=== PATIENT | male | born 1965 | race Caucasian/White ===

== ENCOUNTER 2020-12-24 06:07 | Inpatient (IN) ==
[2020-12-24] MEDS ORDERED: cefOXitin 2,000 MG in Water for inj. (sterile) 10 ML IVP ONE (06:43)
[2020-12-24] MEDS ORDERED: Famotidine 20 MG/2 ML VIAL IVP ONE (07:00)
[2020-12-24] MEDS ORDERED: Ringers Solution, Lactated 1,000 ML IVC ONE (07:00)
[2020-12-24] MEDS ORDERED: Acetaminophen IV 1,000 MG/100 ML BAG IVPB ONE (07:00)
[2020-12-24] MEDS ORDERED: *HR* Midazolam HCl 2 MG/2 ML VIAL ONE (07:09)
[2020-12-24] MEDS ORDERED: *HR* Rocuronium Bromide 50 MG/5 ML VIAL ONE ×2 (07:09→10:26)
[2020-12-24] MEDS ORDERED: *HR* Propofol 200 MG/20 ML VIAL IVP ONE (07:09)
[2020-12-24] MEDS ORDERED: *HR* FentaNYL (PF) 100 MCG/2 ML VIAL ONE ×3 (07:09→11:30)
[2020-12-24] MEDS ORDERED: Lidocaine -MPF 2% 2 ML VIAL ONE (07:09)
[2020-12-24 07:10] LABS: Basophils % 0.3 %; Eosinophils # 0.2 K/mcL (0.0-0.6); Eosinophils % 2.9 %; Hemoglobin 9.9 g/dL (12.9-16.9); Immature Granulocytes % 0.5 % (0-4); Lymphocytes # 0.8 K/mcL (0.6-4.6); Lymphocytes % 12.1 %; Mean Corpuscular HGB Conc 31.9 g/dL (31.6-35.5); Mean Corpuscular Hemoglobin 30.1 pg (28.0-33.3); Mean Corpuscular Volume 94.2 fL (83.0-100.0); Mean Platelet Volume 8.7 fL (9.4-12.4); Monocytes # 0.2 K/mcL (0.0-1.3); Monocytes % 3.1 %; Neutrophils # 5.3 K/mcL (1.6-8.9); Platelet Count 233 K/mcL (140-400); Red Blood Count 3.29 M/mcL (4.19-5.50); Red Cell Distribution Width 14.6 % (11.5-14.5); Segmented Neutrophils % 81.1 %; White Blood Count 6.5 K/mcL (4.3-11.1)
[2020-12-24 07:21] LABS: BUN/Creatinine Ratio 7 (6-26); Blood Urea Nitrogen 5 mg/dL (6-20); Carbon Dioxide 24 mEq/L (23-29); Chloride 107 mEq/L (98-107); Glucose 112 mg/dL (70-105); Osmolality,Calculated 286 (280-300); Potassium 4.1 mEq/L (3.5-5.1); Sodium 139 mEq/L (136-145); eGFR For African Americans > 60 (> 60); eGFR For Non-African Americans > 60 (> 60)
[2020-12-24] MEDS ORDERED: *HR* FentaNYL (PF) 100 MCG/2 ML VIAL IVP PRN (07:46)
[2020-12-24] MEDS ORDERED: Naloxone 0.4 MG/ML INJ IVP PRN ×2 (07:47→12:37)
[2020-12-24] MEDS ORDERED: Nitroglycerin 0.4 MG TAB.SUBL SL PRN (07:47)
[2020-12-24] MEDS ORDERED: Ondansetron 4 MG/2 ML VIAL IVP PRN ×2 (07:47→12:37)
[2020-12-24] MEDS ORDERED: Albuterol 2.5 MG/3 ML NEBULIZER IH PRN (07:47)
[2020-12-24] MEDS ORDERED: Ondansetron 4 MG/2 ML VIAL ONE (08:56)
[2020-12-24] MEDS: Morphine Sulfate 2 MG/ML SYRINGE IVP PRN ×3 (11:40→12:05)
[2020-12-24] MEDS ORDERED: Ketorolac 30 MG/ML VIAL ONE (11:45)
[2020-12-24] MEDS ORDERED: Ketorolac 15 MG/ML VIAL IVP PRN (12:37)
[2020-12-24] MEDS ORDERED: *HR* Metoprolol 5 MG/5 ML VIAL IVP PRN (12:37)
[2020-12-24] MEDS: 0.9 % Sodium Chloride 1,000 ML IVC SCH ×2 (12:54→23:42)
[2020-12-24] MEDS: *HR* OxyCODONE/APAP 7.5/325 TABLET PO PRN ×2 (14:26→20:48)
[2020-12-24] MEDS: Gabapentin 400 MG CAPSULE PO SCH ×2 (14:26→20:48)
[2020-12-24] MEDS: *HR* OxyCODONE/APAP 5/325 TABLET PO PRN (17:27)
[2020-12-24] MEDS: Piperacillin/Tazobactam 3.375 GM in 0.9 % Sodium Chloride Mini Bag 100 ML IVPB SCH ×2 (17:27→23:44)
[2020-12-24] MEDS: Ketorolac 15 MG/ML VIAL IVP SCH ×2 (18:39→23:44)
[2020-12-25] MEDS: *HR* OxyCODONE/APAP 7.5/325 TABLET PO PRN (05:36)
[2020-12-25] MEDS: *HR* Heparin 5,000 UNIT/ML VIAL SQ SCH ×2 (05:36→18:16)
[2020-12-25] MEDS: Ketorolac 15 MG/ML VIAL IVP SCH ×3 (05:36→18:16)
[2020-12-25 06:31] LABS: Basophils % 0.1 %; Eosinophils % 0.1 %; Hemoglobin 9.3 g/dL (12.9-16.9); Immature Granulocytes % 0.4 % (0-4); Lymphocytes # 0.8 K/mcL (0.6-4.6); Lymphocytes % 9.8 %; Mean Corpuscular HGB Conc 32.1 g/dL (31.6-35.5); Mean Corpuscular Hemoglobin 30.6 pg (28.0-33.3); Mean Corpuscular Volume 95.4 fL (83.0-100.0); Mean Platelet Volume 8.7 fL (9.4-12.4); Monocytes # 0.3 K/mcL (0.0-1.3); Monocytes % 4.1 %; Neutrophils # 6.6 K/mcL (1.6-8.9); Platelet Count 221 K/mcL (140-400); Red Blood Count 3.04 M/mcL (4.19-5.50); Red Cell Distribution Width 14.6 % (11.5-14.5); Segmented Neutrophils % 85.5 %; White Blood Count 7.8 K/mcL (4.3-11.1)
[2020-12-25 08:09] LABS: BUN/Creatinine Ratio 14 (6-26); Blood Urea Nitrogen 7 mg/dL (6-20); Calcium 8.5 mg/dL (8.6-10.3); Carbon Dioxide 23 mEq/L (23-29); Chloride 108 mEq/L (98-107); Glucose 114 mg/dL (70-105); Magnesium 1.7 mg/dL (1.6-2.6); Osmolality,Calculated 287 (280-300); Potassium 4.1 mEq/L (3.5-5.1); Sodium 139 mEq/L (136-145); eGFR For African Americans > 60 (> 60); eGFR For Non-African Americans > 60 (> 60)
[2020-12-25] MEDS: *HR* OxyCODONE/APAP 5/325 TABLET PO PRN (08:10)
[2020-12-25] MEDS: Piperacillin/Tazobactam 3.375 GM in 0.9 % Sodium Chloride Mini Bag 100 ML IVPB SCH ×2 (08:12→18:17)
[2020-12-25] MEDS: amLODIPine 5 MG TABLET PO SCH (08:12)
[2020-12-25] MEDS: Gabapentin 400 MG CAPSULE PO SCH ×3 (08:12→19:51)
[2020-12-25] MEDS: Pantoprazole 40 MG VIAL IVP SCH (08:12)
[2020-12-25] MEDS: 0.9 % Sodium Chloride 1,000 ML IVC SCH ×3 (09:08→18:48)
[2020-12-25] MEDS ORDERED: Orphenadrine 60 MG/2 ML VIAL IVP ONE (09:19)
[2020-12-25] MEDS: Acetaminophen IV 1,000 MG/100 ML BAG IVPB SCH ×2 (10:40→18:47)
[2020-12-25] MEDS ORDERED: *HR* OxyCODONE Oral Soln 5 MG/5 ML UD.LIQ PO PRN (13:52)
[2020-12-25] MEDS: *HR* OxyCODONE Oral Soln 5 MG/5 ML UD.LIQ PO PRN ×2 (14:58→19:52)
[2020-12-26] MEDS: Ketorolac 15 MG/ML VIAL IVP SCH ×2 (00:01→05:57)
[2020-12-26] MEDS: *HR* OxyCODONE Oral Soln 5 MG/5 ML UD.LIQ PO PRN ×2 (00:02→07:40)
[2020-12-26] MEDS: Acetaminophen IV 1,000 MG/100 ML BAG IVPB SCH ×3 (00:11→12:43)
[2020-12-26] MEDS: Piperacillin/Tazobactam 3.375 GM in 0.9 % Sodium Chloride Mini Bag 100 ML IVPB SCH ×2 (00:30→07:43)
[2020-12-26 03:17] LABS: Eosinophils # 0.1 K/mcL (0.0-0.6); Eosinophils % 1.7 %; Hematocrit 26.8 % (37.5-50.1); Hemoglobin 8.6 g/dL (12.9-16.9); Immature Granulocytes % 0.3 % (0-4); Lymphocytes # 0.8 K/mcL (0.6-4.6); Lymphocytes % 12.6 %; Mean Corpuscular HGB Conc 32.1 g/dL (31.6-35.5); Mean Corpuscular Volume 96.8 fL (83.0-100.0); Mean Platelet Volume 8.9 fL (9.4-12.4); Monocytes # 0.2 K/mcL (0.0-1.3); Monocytes % 3.5 %; Neutrophils # 4.9 K/mcL (1.6-8.9); Platelet Count 190 K/mcL (140-400); Red Blood Count 2.77 M/mcL (4.19-5.50); Red Cell Distribution Width 14.9 % (11.5-14.5); Segmented Neutrophils % 81.9 %
[2020-12-26 03:40] LABS: BUN/Creatinine Ratio 7 (6-26); Blood Urea Nitrogen 4 mg/dL (6-20); Calcium 8.2 mg/dL (8.6-10.3); Carbon Dioxide 26 mEq/L (23-29); Chloride 107 mEq/L (98-107); Glucose 90 mg/dL (70-105); Osmolality,Calculated 282 (280-300); Potassium 3.8 mEq/L (3.5-5.1); Sodium 138 mEq/L (136-145); eGFR For African Americans > 60 (> 60); eGFR For Non-African Americans > 60 (> 60)
[2020-12-26] MEDS: *HR* Heparin 5,000 UNIT/ML VIAL SQ SCH ×2 (05:57→17:48)
[2020-12-26] MEDS: lisinopriL 20 MG TABLET PO SCH (07:42)
[2020-12-26] MEDS: amLODIPine 5 MG TABLET PO SCH (07:42)
[2020-12-26] MEDS: Gabapentin 400 MG CAPSULE PO SCH ×3 (07:42→20:23)
[2020-12-26] MEDS: Pantoprazole 40 MG VIAL IVP SCH (07:43)
[2020-12-26] MEDS: 0.9 % Sodium Chloride 1,000 ML IVC SCH (08:04)
[2020-12-26] MEDS ORDERED: *HR* OxyCODONE Immed Rel 5 MG TABLET PO PRN (10:36)
[2020-12-26] MEDS: Ibuprofen 800 MG TABLET PO SCH ×2 (15:39→23:22)
[2020-12-26] MEDS: *HR* OxyCODONE/APAP 7.5/325 TABLET PO PRN ×2 (17:47→23:22)
[2020-12-26 18:50] LABS: BUN/Creatinine Ratio 6 (6-26); Blood Urea Nitrogen 3 mg/dL (6-20); Calcium 8.9 mg/dL (8.6-10.3); Carbon Dioxide 26 mEq/L (23-29); Chloride 103 mEq/L (98-107); Glucose 110 mg/dL (70-105); Osmolality,Calculated 281 (280-300); Potassium 3.4 mEq/L (3.5-5.1); Sodium 137 mEq/L (136-145); eGFR For African Americans > 60 (> 60); eGFR For Non-African Americans > 60 (> 60)
[2020-12-26 19:53] LABS: Basophils % 0.3 %; Eosinophils # 0.2 K/mcL (0.0-0.6); Eosinophils % 3.3 %; Hematocrit 28.9 % (37.5-50.1); Hemoglobin 9.5 g/dL (12.9-16.9); Immature Granulocytes % 0.8 % (0-4); Lymphocytes # 0.8 K/mcL (0.6-4.6); Lymphocytes % 12.3 %; Mean Corpuscular HGB Conc 32.9 g/dL (31.6-35.5); Mean Corpuscular Hemoglobin 30.1 pg (28.0-33.3); Mean Corpuscular Volume 91.5 fL (83.0-100.0); Mean Platelet Volume 8.7 fL (9.4-12.4); Monocytes # 0.2 K/mcL (0.0-1.3); Monocytes % 3.2 %; Neutrophils # 5.3 K/mcL (1.6-8.9); Platelet Count 221 K/mcL (140-400); Red Blood Count 3.16 M/mcL (4.19-5.50); Red Cell Distribution Width 14.7 % (11.5-14.5); Segmented Neutrophils % 80.1 %; White Blood Count 6.6 K/mcL (4.3-11.1)
[2020-12-27] MEDS: *HR* OxyCODONE/APAP 7.5/325 TABLET PO PRN ×5 (04:32→22:09)
[2020-12-27] MEDS: *HR* Heparin 5,000 UNIT/ML VIAL SQ SCH ×2 (04:32→17:33)
[2020-12-27] MEDS: amLODIPine 5 MG TABLET PO SCH (08:26)
[2020-12-27] MEDS: Ibuprofen 800 MG TABLET PO SCH ×3 (08:26→23:23)
[2020-12-27] MEDS: Gabapentin 400 MG CAPSULE PO SCH ×3 (08:26→20:12)
[2020-12-27] MEDS: lisinopriL 20 MG TABLET PO SCH (08:27)
[2020-12-27 08:54] LABS: Basophils % 0.2 %; Eosinophils # 0.3 K/mcL (0.0-0.6); Eosinophils % 5.7 %; Hematocrit 29.2 % (37.5-50.1); Hemoglobin 9.3 g/dL (12.9-16.9); Immature Granulocytes % 0.4 % (0-4); Mean Corpuscular HGB Conc 31.8 g/dL (31.6-35.5); Mean Corpuscular Hemoglobin 30.3 pg (28.0-33.3); Mean Corpuscular Volume 95.1 fL (83.0-100.0); Mean Platelet Volume 8.5 fL (9.4-12.4); Monocytes # 0.2 K/mcL (0.0-1.3); Monocytes % 3.6 %; Neutrophils # 3.3 K/mcL (1.6-8.9); Platelet Count 224 K/mcL (140-400); Red Blood Count 3.07 M/mcL (4.19-5.50); Red Cell Distribution Width 14.8 % (11.5-14.5); Segmented Neutrophils % 69.1 %; White Blood Count 4.7 K/mcL (4.3-11.1)
[2020-12-27 09:08] LABS: BUN/Creatinine Ratio 7 (6-26); Blood Urea Nitrogen 4 mg/dL (6-20); Calcium 8.9 mg/dL (8.6-10.3); Carbon Dioxide 29 mEq/L (23-29); Chloride 107 mEq/L (98-107); Glucose 91 mg/dL (70-105); Osmolality,Calculated 288 (280-300); Potassium 4.6 mEq/L (3.5-5.1); Sodium 141 mEq/L (136-145); eGFR For African Americans > 60 (> 60); eGFR For Non-African Americans > 60 (> 60)
[2020-12-28] MEDS: *HR* OxyCODONE/APAP 7.5/325 TABLET PO PRN ×3 (02:54→11:38)
[2020-12-28] MEDS: *HR* Heparin 5,000 UNIT/ML VIAL SQ SCH (04:51)
[2020-12-28 06:40] VITALS: BP 129/67; PULSE 73; TEMP 97.8; O2SAT 96
[2020-12-28] MEDS: Ibuprofen 800 MG TABLET PO SCH (07:48)
[2020-12-28] MEDS: Gabapentin 400 MG CAPSULE PO SCH (07:48)
[2020-12-28] MEDS: lisinopriL 20 MG TABLET PO SCH (07:49)
[2020-12-28] MEDS: amLODIPine 5 MG TABLET PO SCH (07:49)
== END 2020-12-28 12:34 | disposition home or self-care (01) | DRG 331 ==
LOC: SAMDAY 06:07 → 3BNU 12:33
PROVIDERS: ADMIT Surgery; ATTEND Surgery